=== PATIENT | female | born 1975 | race Caucasian/White ===

== ENCOUNTER → 2016-10-26 | Outpatient (CLI) | payer BC ==
--- NOTE | 2016-10-27 08:01 | WWHP ---
DATE OF SERVICE: 10/26/16 CHIEF COMPLAINT: The patient is here for her routine gynecological exam and mammogram. HISTORY OF PRESENT ILLNESS: This is a 41-year-old G4, P3, 0, 1, 3 with an LMP of 10/04/16. Her is status post vasectomy. She did have a previous abnormal mammogram in 2014 which did require a breast biopsy which revealed a fibroadenoma. She also had fibrocystic changes. She states she has not had any mammograms done since then. It has been about 4 years since her last pelvic exam. She states her periods are regular every month. The patient has noticed a small lump of fatty tissue at the lateral aspect of the right breast and she says she has noticed this since about July. She denies any pain or redness. PAST MEDICAL HISTORY: Anxiety. Medications: Celexa 25 mg daily. ALLERGIES: No known drug allergies. PAST SURGICAL HISTORY: Laparoscopic cholecystectomy in 2012. PAST OB HISTORY: Three vaginal deliveries and 1 spontaneous . 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 SOCIAL HISTORY: She denies tobacco and drug use and has 0 to 2 alcohol drinks per month. She has been since 2002 and works at the [employer] in the [employer] department. FAMILY HISTORY: Grandmother had breast cancer. Grandmother also had CHF. REVIEW OF SYSTEMS: She has lost 18-20 pounds during the last six months with diet and exercise. This was lost during a contest with coworkers for weight loss. She states she has been able to keep the weight off. She denies respiratory, cardiac or GI problems. PHYSICAL EXAM: Blood pressure 121/78. Height 5 feet 4 inches, weight 154 pounds. Temperature 96.5. Pulse 81. This is a well developed, well nourished white female who is alert and oriented times three in no acute distress. HEENT : is within normal limits. Neck is supple without mass or thyromegaly. Chest and lungs clear to auscultation. Heart is regular rate and rhythm. Breasts: without mass or discharge. The area where she has felt some soft tissue at the lateral aspect of the breast does not reveal any abnormality to inspection or palpitation. It is possible there is a very small lipoma in this area that she may be noticing but examination is within normal limits. Axillary exam is negative for adenopathy. Back negative for CVA tenderness. Abdomen is soft and nontender without palpable masses. Pelvic exam, normal external genitalia. Cervix appears multiparous and normal. Vagina appears normal. . There is no evidence of prolapse. The uterus is mid position, nongravid size and nontender. There are no palpable adnexal masses or tenderness. Rectal exam was refused by the patient. Extremities nontender. IMPRESSION: 1. A 41 year old female with normal gynecological exam whose is status post vasectomy. 2. History of abnormal mammogram in 2014 which did require a right breast biopsy which showed fibroadenoma and fibrocystic changes. 3. The patient has noticed soft tissue area at the lateral aspect of the right breast without any significant physical findings at this time. Differential diagnosis will include lipoma or possible breast and fatty tissue changes following intentional weight loss since she has lost about 20 pounds over the last six months. PLAN: 1. Pap smear was performed. 2. Self breast examination was discussed. 3. Mammogram will be done today. This will be diagnostic mammogram because of her history of abnormal mammogram and biopsy two years ago. 4. If the breast imaging studies are benign, I have reassured the patient that her findings are quite normal and most likely it is related to the weight loss. She was instructed to call if she has any changes on breast exam and we can reevaluate the breasts at that time. 5. She will return in one year. WANDA
--- NOTE | 2016-10-27 09:03 | MM ---
Reason for exam: additional evaluation requested from prior study. Last mammogram was performed 2 years and 2 months ago. History: Family history of breast cancer in paternal grandmother at age 40. Benign US biopsy breast VAD LT of the left breast, August 20, 2014. Benign US RT VAD breast biopsy of the right breast, January 02, 2013. Took hormonal contraceptives for 2 years. Physical Findings: Nurse did not find any significant physical abnormalities on exam. MG 3D Diag Mammo W/Cad JOHN Bilateral CC and MLO view(s) were taken. Prior study comparison: August 20, 2014, left breast MG diagnostic mammo LT wo CAD. December 28, 2012, CAD bilateral diagnostic mammogram. The breast tissue is heterogeneously dense. This may lower the sensitivity of mammography. Previous mammotome biopsy within the left breast. No significant new findings when compared with previous films. These results were verbally communicated with the patient and result sheet given to the patient on 10/26/16. ASSESSMENT: Benign, BI-RAD 2 RECOMMENDATION: Routine screening mammogram of both breasts in 1 year.
== END | disposition home or self-care (01) ==
LOC: WWCWWP 12:31
PROVIDERS: ATTEND Obstetrics & Gynecology
DX: R92.8 Other abnormal and inconclusive findings on diagnostic imaging of breast (principal)
CPT/HCPCS: G0204; G0279

== ENCOUNTER → 2018-04-05 | Outpatient (CLI) | payer BC ==
[2018-04-05 11:44] VITALS: BP 119/79; PULSE 80; RESP 18; TEMP 97.7; BMI 26.9
--- NOTE | 2018-04-05 12:16 | P.HPOB ---
History of Present Illness H&P Date: 04/05/18 Chief Complaint: The patient is here for her routine gynecologic exam. This is a 43-year-old with an LMP that was not specified. She states her menses are regular every month. Her 's status post vasectomy. Review of Systems The patient has gained 3 pounds over the last year. This was after losing 20 pounds the prior year with diet and exercise. She denies respiratory, cardiac, or G.I. problems. 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 History of Any Multi-Drug Resistant Organisms: None Reported Past Surgical History: Breast Surgery (Breast biopsy 2016), Cholecystectomy Past Anesthesia/Blood Transfusion Reactions: No Reported Reaction Past Psychological History: Anxiety Smoking Status: Never smoker Past Alcohol Use History: Rare (0-2 per month) Past Drug Use History: None Reported Additional History: She has been since 2002 and works for the [employer] in the [employer] department. - Past Family History Father Additional Family Medical History / Comment(s): Paternal grandmother had breast cancer. Mother Additional Family Medical History / Comment(s): Maternal grandmother had CHF. Medications and Allergies Home Medications Medication Instructions Recorded Confirmed Type Ibuprofen [Advil] 200 mg PO Q6HR PRN 04/05/18 04/05/18 History Allergies Allergy/AdvReac Type Severity Reaction Status Date / Time No Known Allergies Allergy Verified 05/26/15 10:12 Exam Vital Signs Temp Pulse Resp BP Pulse Ox 04/05/18 11:36 97.7 F 80 18 119/79 99 Intake and Output 04/04/18 04/05/18 04/05/18 22:59 06:59 14:59 Other: Weight 71.214 kg Height 5'4", weight 157 pounds, BMI 26.9. This is a well-developed well-nourished white female who is alert and oriented times 3 in no acute distress. HEENT: Within normal limits. NECK: Supple without mass or thyromegaly. CHEST AND LUNGS: Clear to auscultation. HEART: Regular rate and rhythm. BREASTS: Are without mass or discharge. AXILLARY EXAM: Negative for adenopathy. BACK: Negative for CVA tenderness. ABDOMEN: Soft, nontender, without palpable masses. PELVIC EXAM: Normal external genitalia. Cervix and vagina appear normal. The cervix is multiparous. There is no unusual discharge. There is no evidence of prolapse. The uterus is midposition, nongravid size and nontender. There are no palpable adnexal masses or tenderness. RECTAL EXAM: negative for mass or tenderness and is negative for occult blood. EXTREMITIES: Nontender. IMPRESSION: 1. 43-year-old gynecologically healthy female whose is status post vasectomy. PLAN: 1. Pap smear was deferred sentence she had a normal one less than 2 years ago. 2. Self breast awareness was discussed with the patient. 3. Screening mammogram is scheduled for 04/26/2018. The orders that was given to the patient for this. 4. Osteoporosis prevention was discussed. I have stressed the importance of adequate calcium, vitamin D and regular exercise. Recommended amounts of calcium and vitamin D were also discussed. 5. He will return in one year.
== END ==
LOC: WWCWWP 11:26
PROVIDERS: ATTEND Obstetrics & Gynecology
DX: Z53.9 Procedure and treatment not carried out, unspecified reason (principal)

== ENCOUNTER → 2018-05-04 | Outpatient (CLI) | payer BC ==
--- NOTE | 2018-05-08 08:24 | MM ---
Reason for exam: screening (asymptomatic). Last mammogram was performed 1 year and 6 months ago. History: Family history of breast cancer in paternal grandmother at age 40. Benign US biopsy breast VAD LT of the left breast, August 20, 2014. Benign US RT VAD breast biopsy of the right breast, January 02, 2013. Took hormonal contraceptives for 2 years. Physical Findings: A clinical breast exam by your physician is recommended on an annual basis and results should be correlated with mammographic findings. MG 3D Screening Mammo W/Cad Bilateral CC and MLO view(s) were taken. Prior study comparison: October 26, 2016, bilateral MG 3d diag mammo w/cad JOHN. August 20, 2014, left breast MG diagnostic mammo LT wo CAD. The breast tissue is heterogeneously dense. This may lower the sensitivity of mammography. There are benign appearing round calcifications bilaterally. Previous mammotome biopsy in the left breast. Focal asymmetry left marked posterior medial aspect CC (). This finding is changed when compared with previous exams. ASSESSMENT: Incomplete: need additional imaging evaluation, BI-RAD 0 RECOMMENDATION: Ultrasound of the left breast. [facility] will attempt to contact patient to return for ultrasound.
== END | disposition home or self-care (01) ==
LOC: RADMAMWWP 08:12
PROVIDERS: ATTEND Obstetrics & Gynecology
DX: Z12.31 Encounter for screening mammogram for malignant neoplasm of breast (principal)
CPT/HCPCS: 77063; 77067

== ENCOUNTER → 2018-05-16 | Outpatient (CLI) | payer BC ==
--- NOTE | 2018-05-16 09:44 | USB ---
Reason for exam: additional evaluation requested from abnormal screening. History: Family history of breast cancer in paternal grandmother at age 40. Benign US biopsy breast VAD LT of the left breast, August 20, 2014. Benign US RT VAD breast biopsy of the right breast, January 02, 2013. Took hormonal contraceptives for 2 years. Physical Findings: Nurse did not find any significant physical abnormalities on exam. US Breast Workup Limited LT Left limited breast ultrasound including focal area of concern, retroareolar and axilla demonstrates a 0.5 x 0.5 x 0.4cm mixed lesion at 9 o'clock, a 1.2 x 0.8 x 1.0cm lobular, solid lesion at 1 o'clock with clip visualized, a 0.6 x 0.3 x 0.5cm solid, hypoechoic lesion at 1 o'clock and a 0.3 x 0.3 x 0.2cm lesion at 10 o'clock, corresponds to the mammographic finding, cystic with a well defined posterior wall. These results were verbally communicated with the patient and result sheet given to the patient on 05/16/18. ASSESSMENT: Probably benign, BI-RAD 3 RECOMMENDATION: Follow-up diagnostic mammogram and ultrasound of the left breast in 6 months.
--- NOTE | 2018-05-16 09:46 | MM ---
Reason for exam: additional evaluation requested from abnormal screening. Last mammogram was performed less than 1 month ago. History: Family history of breast cancer in paternal grandmother at age 40. Benign US biopsy breast VAD LT of the left breast, August 20, 2014. Benign US RT VAD breast biopsy of the right breast, January 02, 2013. Took hormonal contraceptives for 2 years. Physical Findings: Nurse did not find any significant physical abnormalities on exam. MG 3D Work Up W/Cad LT CC and MLO view(s) were taken of the left breast. Prior study comparison: May 04, 2018, bilateral MG 3d screening mammo w/cad. October 26, 2016, bilateral MG 3d diag mammo w/cad JOHN. The breast tissue is heterogeneously dense. This may lower the sensitivity of mammography. There is a 3mm mass 6cm from nipple in the left upper inner quadrant persists on additional views, corresponds to a cyst with posterior defined wall in dense tissue on ultrasound. These results were verbally communicated with the patient and result sheet given to the patient on 05/16/18. ASSESSMENT: Incomplete: need additional imaging evaluation, BI-RAD 0 RECOMMENDATION: Ultrasound of the left breast. (upper outer quadrant)
== END | disposition home or self-care (01) ==
LOC: RADUSWWP 07:42
PROVIDERS: ATTEND Obstetrics & Gynecology
DX: R92.8 Other abnormal and inconclusive findings on diagnostic imaging of breast (principal)
CPT/HCPCS: 77061; 77065